=== PATIENT | male | born 1960 | race Two or more races ===

== ENCOUNTER 2022-11-11 16:01 | Emergency (ER) | payer MEDICAID, OTHER ==
[~2022-11-11] VITALS: Ht 170.2 cm; Wt 104.9 kg
[2022-11-11 16:10] VITALS: BP 130/87
== END 2022-11-11 21:25 | disposition home or self-care (01) ==
LOC: ER 16:06
DX: M79.605 Pain in left leg (principal); M79.604 Pain in right leg; R22.43 Localized swelling, mass and lump, lower limb, bilateral; J45.909 Unspecified asthma, uncomplicated; I50.9 Heart failure, unspecified; Z95.0 Presence of cardiac pacemaker
CPT/HCPCS: 93925

== ENCOUNTER 2023-10-08 15:56 | Emergency (ER) | payer MEDICAID ==
[~2023-10-08] VITALS: Ht 170.2 cm; Wt 100.2 kg
[2023-10-08] MEDS ORDERED: PRED10TA PO (19:17)
[2023-10-08] MEDS ORDERED: CEPH500C PO (19:17)
[2023-10-08] MEDS ORDERED: CETITAB29 PO (19:19)
[2023-10-08] MEDS: DexAMETHasone SOD PHOS 10MG/1ML VIAL INJ IM ONE (19:26)
[2023-10-08] MEDS: cefTRIAXone SOD 1,000 MG VL IM ONE (19:26)
[2023-10-08 20:08] VITALS: BP 110/73; PULSE 72; RESP 18; TEMP 98; O2SAT 97
== END 2023-10-08 20:15 | disposition home or self-care (01) ==
LOC: ER 15:56
DX: T78.49XA Other allergy, initial encounter (principal); J45.909 Unspecified asthma, uncomplicated; I50.9 Heart failure, unspecified; Z98.890 Other specified postprocedural states; Z79.899 Other long term (current) drug therapy; X58.XXXA Exposure to other specified factors, initial encounter
CPT/HCPCS: 96372; 99284; J0696; J1100